=== PATIENT | male | born 1970 | race Caucasian/White ===

== ENCOUNTER 2019-05-26 07:26 | Day surgery (SDC) | payer BC ==
[~2019-05-26 07:26] MED LIST: Bupivacaine 0.5% 50 ML MDV ONE; Bupivacaine 0.5%/EPINEPHrine 1:200,000 50 ML MDV ONE; Lidocaine 1% with EPINEPHrine 1:100,000 50 ML MDV ONE
[2019-05-26] MEDS ORDERED: fentaNYL 250 MCG/5 ML SDV ONE ×2 (07:38→09:24)
[2019-05-26] MEDS ORDERED: Glycopyrrolate 0.2 MG/ML 5 ML MDV ONE (07:39)
[2019-05-26] MEDS ORDERED: Succinylcholine 200 MG/10 ML MDV ONE (07:39)
[2019-05-26] MEDS ORDERED: Dexamethasone 4 MG/ML SDV ONE (07:39)
[2019-05-26] MEDS ORDERED: Neostigmine Methylsulfate 1 MG/ML 5 ML Syringe ONE (07:39)
[2019-05-26] MEDS ORDERED: Propofol 200 MG/20 ML SDV ONE (07:39)
[2019-05-26] MEDS ORDERED: Ondansetron 4 MG/2 ML SDV ONE (07:39)
[2019-05-26] MEDS ORDERED: Rocuronium 50 MG/5 ML Vial ONE (07:39)
[2019-05-26] MEDS ORDERED: Sodium Chloride 0.9% 1,000 ML IV SCH (08:00)
[2019-05-26] MEDS ORDERED: Clindamycin Phosphate 900 MG in Sodium Chloride 0.9% 100 ML IV ONE (08:45)
[2019-05-26] MEDS ORDERED: Ketorolac 60 MG/2 ML SDV ONE (09:48)
[2019-05-26] MEDS ORDERED: Meperidine PF 100 MG/ML Syringe IM ONE (10:12)
--- NOTE | 2019-05-26 10:40 | OR ---
DATE OF PROCEDURE: 05/26/2019 PROCEDURE: Right total extraperitoneal hernia repair. COMPLICATIONS: None. STATISTICAL REPORTING ANALYST: None. ANESTHESIA: MAC. SURGEON: Romario Villegas MD RISKS: Risks, benefits, alternatives, and limitations including, but not limited to infection, bleeding, injury to testicular arteries resulting in testicular loss, seroma, hematoma, possibility of open surgery, and recurrence were all explained to the patient and wished to proceed. INDICATIONS: Recurrent inguinal hernia, right. PROCEDURE IN DETAIL: The patient was placed in supine position. An infraumbilical incision was made approximately 1 cm in size. This was carried down to the fascia, which was opened with an electrocautery. Peritoneum was readily identified. A Pean was used to create a potential space. The balloon was introduced and advanced and held for 1 minute. Subsequent insufflation showed no peritoneal rent, nor any other abnormalities. Dissection began in a lateral to medial fashion. The lateral aspects dissected freely. Medial around the indirect inguinal hernia, there was extensive adhesion and scarring. The several small vessels were integrated within the mesh themselves. The vas and associated blood structures were identified and deflected inferiorly medially. At no time was the "triangle of doom" nor the "triangle of pain" entered or interacted with them anyway. The hernia itself was noted to be a fat containing hernia which was able to be reflected back. Dissection then continued on laterally dissecting out area of Hermann's ligament and the pubic symphysis. The pressure was then dropped for evidence of bleeding and none was noted. The mesh was introduced, unrolled, and placed to at least 2 cm on the pubic symphysis. This was unrolled without difficulty. The air was then desufflated as the mesh was held into place. The fascia was then closed with #1 Vicryl. Skin and subcu tissues were closed with 3-0 Vicryl and 4-0 Vicryl in interrupted running fashion. The patient tolerated the procedure well. Romario Villegas MD /[id number]
--- NOTE | 2019-05-26 10:43 | OR ---
DATE OF PROCEDURE: 05/26/2019 PROCEDURE: Transversus abdominis plane block. COMPLICATIONS: None. 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 PROCEDURE IN DETAIL: The patient was placed in supine position. The right side was addressed first. In the transversus plane under direct ultrasound guidance, this was injected with approximately 80% of the solution. Left side was then addressed in same manner, same fashion, same technique in the same sequence using the same equipment except different needle and syringe. The patient tolerated the procedure well. Romario Villegas MD /[id number]
== END 2019-05-26 11:50 | disposition home or self-care (01) ==
LOC: JP.SDS 07:26
PROVIDERS: ATTEND Surgery
DX: K40.91 Unilateral inguinal hernia, without obstruction or gangrene, recurrent (principal); G89.29 Other chronic pain; E66.9 Obesity, unspecified; M54.9 Dorsalgia, unspecified; Z88.0 Allergy status to penicillin; Z68.36 Body mass index [BMI] 36.0-36.9, adult
CPT/HCPCS: 36415; 49520; 64486; 80048; 85027; C1781; J0171; J0330; J1100; J1885; J2175; J2405; J2704; J2710; J2795; J3010; J3490; J7030; J7050